=== PATIENT | male | born 1970 | race Caucasian/White ===

== ENCOUNTER 2017-10-27 07:44 | Outpatient (CLI) | payer BC ==
--- NOTE | 2017-10-27 09:45 | ULT ---
ABDOMINAL ULTRASOUND: DATE: 10/27/17. HISTORY: Elevated liver function tests. FINDINGS: The liver demonstrates diffuse increased echogenicity suggesting diffuse fatty infiltration. This d oes limit evaluation of the hepatic parenchyma, but no focal hepatic lesion is appreciated. The live r is also enlarged in craniocaudal dimensions measuring 19 cm. There are a few echogenic areas within the spleen which are nonspecific and may be related to vascula r structures with a question of a few calcified granulomata. The spleen is normal in size. The visualized portions of the pancreas, visualized portions of the IVC, abdominal aorta, gallbladder , and bilateral kidneys demonstrate a normal sonographic appearance. The right kidney measures 11.5 cm in length with the left kidney measuring 11.7 cm in length. The common duct measures 0.3 cm diameter, which is within normal limits. IMPRESSION: Hepatomegaly with diffuse fatty infiltration of the liver. POS: [facility]
== END 2017-10-27 07:45 | disposition home or self-care (01) ==
LOC: SCSULT 07:44
PROVIDERS: ATTEND Internal Medicine
DX: K62.5 Hemorrhage of anus and rectum (principal); R94.5 Abnormal results of liver function studies; R10.11 Right upper quadrant pain; R12 Heartburn; Z80.0 Family history of malignant neoplasm of digestive organs; K76.0 Fatty (change of) liver, not elsewhere classified
CPT/HCPCS: 76700

== ENCOUNTER 2017-11-11 08:28 | Outpatient (CLI) | payer BC ==
[2017-11-11] MEDS ORDERED: Iopamidol 370 76% 100 ML VIAL ONE (09:00)
--- NOTE | 2017-11-11 13:06 | CT ---
CT NECK WITH CONTRAST: DATE: 11-11-17 History: 47-year-old male with neck mass. E04.1, thyroid cyst Comparison: None. FINDINGS: There is a well circumscribed, approximately 2.5 x 2.7 x 1.7 cm moderately low attenuation mass locat ed between the left anterior surface of the thyroid cartilage and the left strap muscle. This mass di splaces the left strap muscle anteriorly. It has a density of 23 HU. It is superiorly bordered by the hyoid bone. It is anterior and superior to the upper pole of the left lobe of thyroid gland. The thy roid gland is normal in size. The bony cervical spine is essentially normal. The retropharyngeal, per ivertebral, posterior cervical, parapharyngeal, parotid, carotid, submandibular, lunch counter manager, and subl ingual spaces, are normal except for a large number of minimally enlarged, scattered shotty cervical lymph nodes at all levels, nonspecific. The larynx is normal. Adenoids and palatine tonsils are symme trically mildly thickened. IMPRESSION: A mass deep to the left strap muscles, anterior to the left side of the hyoid bone: evidence for thyr oglossal duct cyst, with mildly increased attenuation of its internal fluid contents. POS: [facility]
== END 2017-11-11 08:29 | disposition home or self-care (01) ==
LOC: SCSCT 08:28
PROVIDERS: ATTEND Specialist
DX: E04.1 Nontoxic single thyroid nodule (principal); R22.1 Localized swelling, mass and lump, neck
CPT/HCPCS: 70491

== ENCOUNTER 2018-01-13 13:20 | Day surgery (SDC) | payer BC ==
[2018-01-11 11:41] VITALS: BMI 35.7
[~2018-01-13 13:20] MED LIST: Dexamethasone 20 MG/5 ML VIAL ONE; Glycopyrrolate 0.2 MG/ML 5 ML SYRINGE ONE; Lidocaine 1% PF 5 ML VIAL ONE; Ondansetron HCl/PF 4 MG/2 ML Vial ONE; PROPOFOL 200 MG/20 ML VIAL ONE; ePHEDrine/0.9% NaCl/PF SYRINGE 50 mg/10 ml ONE
[2018-01-13] MEDS ORDERED: Fentanyl 100 MCG/2 ML VIAL ONE ×4 (15:09→18:13)
[2018-01-13] MEDS ORDERED: Bacitracin Zinc Ointment 30 gm TUBE ONE (15:23)
[2018-01-13] MEDS ORDERED: Lidocaine 1% w/Epinephrine 1:100K 30 ML VIAL ONE (15:23)
[2018-01-13] MEDS ORDERED: Fentanyl 250 MCG/5 ML VIAL ONE ×2 (15:28→15:30)
[2018-01-13] MEDS ORDERED: Midazolam HCl 2 mg/2 ml Vial ONE ×2 (15:28→15:30)
--- NOTE | 2018-01-14 00:41 | OP ---
PREOPERATIVE DIAGNOSIS: Large thyroglossal duct cyst. POSTOPERATIVE DIAGNOSIS: Large thyroglossal duct cyst. PROCEDURE PERFORMED: Excision of large thyroglossal duct cyst and also Reyes procedure. PROCEDURE IN DETAIL: After consent was obtained, the patient was identified, brought to the operatin g room and placed on the operating table in supine position. General endotracheal anesthesia was obt ained. The patient was positioned for surgery. The neck was obese and the cyst was large and predom inantly left-sided. An incision was made through a natural skin crease after the patient was prepped and draped and carried down through the skin, subcutaneous tissues, and platysma. We then continued our dissection down and elevated inferiorly and superiorly based flaps. We then were able to dissec t down through the anterior strap muscle and we immediately encountered the cyst. Cyst was then diss ected from the surrounding soft tissue. We then continued dissection superiorly to the hyoid bone. The cyst tract was delineated and the medial portion of the hyoid bone was removed with bone snippers . We then dissected the tongue and insertion of the tongue muscle and the superior aspect of the hyo id bone until the cyst was encountered again. We now had the cyst tract completely immobilized as it entered the pharynx. Silk tie was used with a #2 silk suture and tied off with the free edge being bipolared to kill any exposed mucosa. The wound was then closed. Fibrillar Surgicel was used in the deep aspect of the wound and the strap muscles reapproximated as was the platysma and the skin. The patient was awakened after sterile dressing was applied and taken to recovery room where he remained in stable condition prior to discharge home.
== END 2018-01-13 19:28 | disposition home or self-care (01) ==
LOC: SDC 13:20
PROVIDERS: ATTEND Specialist
PROC: 0WB60ZX Excision of Neck, Open Approach, Diagnostic (ICD-10-PCS; principal; 2018-01-13)
DX: Q89.2 Congenital malformations of other endocrine glands (principal); E78.5 Hyperlipidemia, unspecified; E03.9 Hypothyroidism, unspecified; Z79.899 Other long term (current) drug therapy
CPT/HCPCS: 88305; 93005; 93010; 96374; J1100; J2001; J2250; J2405; J2704; J3010

== ENCOUNTER 2018-09-05 15:37 | Emergency (ER) | payer BC ==
[2018-09-05 16:46] LABS: #Basophils 0.1 thou/uL (0.0-0.2); #Eosinphils 0.1 thou/uL (0.0-0.7); #Lymphocytes 2.1 thou/uL (1.20-3.40); #Monocytes 1.3 thou/uL (0.11-0.59); #Neutrophils 9.9 thou/uL (1.40-6.50); %Basophils 0.5 % (0.0-1.0); %Eosinophils 0.6 % (0.0-10.0); %Lymphocytes 15.4 % (21.0-51.0); %Monocytes 9.8 % (0.0-10.0); %Neutrophils 73.8 % (42.0-75.0); Hemoglobin 15.3 g/dL (14.0-18.0); Mean Corpuscular HGB CONC 34.3 g/dL (32.0-36.0); Mean Corpuscular Volume 93.3 fL (78.0-98.0); Mean Platelet Volume 8.3 fL (7.4-10.4); Platelet Count 201 thou/uL (130-400); RBC Distribution Width 11.9 % (11.5-14.5); Red Blood Cell (RBC) Count 4.78 mill/uL (4.70-6.10); White Blood Cell (WBC) Count 13.4 thou/uL (4.8-10.8)
[2018-09-05] MEDS ORDERED: Ketorolac Tromethamine 30 MG/ML VIAL ONE (16:51)
[2018-09-05] MEDS ORDERED: Acetaminophen 500 MG TAB ONE (17:21)
[2018-09-05 17:37] LABS: Bilirubin Negative (Negative); Blood, Urine Negative (Negative); Clarity CLEAR (Clear); Glucose, Urine (Dipstick) Negative (Negative); Leukocyte Small (Negative); Nitrite Negative (Negative); Protein, Urine (Dipstick) Negative (Neg-Trace); Specific Gravity, Urine 1.019 (1.002-1.036); pH, Urine 6.5 (5.0-9.0)
[2018-09-05 17:39] LABS: Bacteria/HPF None Seen HPF (None Seen); Hyaline Casts/LPF 0-3 HYALINE CAST LPF (0-3 Hyaline); Pathc Cast-AUWi Flag 0.29 (0-2.49); Squamous Epithelial 0-3 HPF (0-3)
[2018-09-05 17:55] LABS: RBC/HPF 0-3 HPF (0-3)
--- NOTE | 2018-09-05 17:55 | ULT ---
TESTICULAR ULTRASOUND: History: Right sided testicular pain and swelling. FINDINGS: Real-time imaging of the right and left testes was performed. The right testicle measures 4.1 and the left 5 cm in size. There are small bilateral hydroceles present. On the right side there is a 3 mm epididymal cyst. The head of the epididymis does not appear enlarge d, however, along the inferior epididymis it is very heterogeneous in appearance in the mid to tail r egion of the epididymis and there is increased flow. DOPPLER EVALUATION WITH SPECTRAL ANALYSIS: Normal flow is shown to be testes. Increased flow to an area along the inferior pole of the right kalyani ticle which appears to be related to an enlarged epididymal tail and body region. Also some incidenta l note of somewhat prominent vessels in the right inguinal canal region. IMPRESSION: 1. Findings suggestive of a right sided epididymitis. 2. No evidence of testicular torsion. 3. Small bilateral hydroceles. POS: [facility]
[2018-09-05 19:11] LABS: ALT (SGPT) 49 U/L (8-55); AST (SGOT) 28 U/L (5-34); Albumin 4.5 g/dL (3.5-5.0); Alkaline Phosphatase 87 U/L (40-150); Anion Gap 12 mmol/L (10-20); BUN (Urea Nitrogen) 11 mg/dL (8.9-20.6); Calc. Creatinine Clearance 0 mL/min (70-130); Calcium 9.7 mg/dL (7.8-10.44); Carbon Dioxide 27 mmol/L (22-29); Chloride 99 mmol/L (98-107); Estimated GFR-MDRD Greater than 90; Glucose 106 mg/dL (70-105); Potassium 3.8 mmol/L (3.5-5.1); Protein, Total 7.5 g/dL (6.0-8.3); Sodium 134 mmol/L (136-145)
== END 2018-09-05 18:46 | disposition home or self-care (01) ==
LOC: ERS 15:37
DX: N45.1 Epididymitis (principal); E03.9 Hypothyroidism, unspecified; Z79.899 Other long term (current) drug therapy
CPT/HCPCS: 36415; 76870; 80053; 81003; 81015; 83605; 85025; 96361; 96374; J1885

== ENCOUNTER 2019-02-02 10:30 | Outpatient (CLI) | payer BC ==
--- NOTE | 2019-02-02 11:15 | CT ---
CT Stone Protocol: 02/02/2019 12:00 AM HISTORY: Right flank pain for 2 weeks COMPARISON: None. TECHNIQUE: Multiple contiguous axial images were obtained and a CT of the abdomen and pelvis without IV contrast . Coronal reformats were performed. FINDINGS: This examination is limited for the evaluation of solid organs and vascular structures due to the lac k of intravenous contrast. Lower Chest: within normal limits. Abdomen: Liver: Diffuse fatty infiltration of the liver is seen. Bile Ducts: Normal caliber. Gallbladder: No calcified gallstones. Normal caliber wall. Pancreas: within normal limits. Spleen: within normal limits. Adrenals: within normal limits. Kidneys: Mild right hydronephrosis. There is a nonobstructing 1 to 2 mm calcification in the left kid masha. Pelvis: Reproductive Organs: No pelvic masses. Ureters: There is a 5 to 6 mm calcification in the midportion of the right ureter with mild right hyd ronephrosis. Bladder: within normal limits. Bowel: Normal caliber. Normal appendix. Mesenteric Lymph Nodes: No enlarged mesenteric lymph nodes. Peritoneum: No ascites or free air, no fluid collection. Vessels: Normal caliber aorta Retroperitoneum: within normal limits. Abdominal Wall: within normal limits. Bones: Degenerative changes in the spine. IMPRESSION: 1. Right midureteral calcification with mild right hydronephrosis 2. Nonobstructing left renal calcification 3. Fatty liver
== END 2019-02-02 10:31 | disposition home or self-care (01) ==
LOC: SCSCT 10:30
PROVIDERS: ATTEND Family Medicine
DX: M54.5 Low back pain (principal); K76.0 Fatty (change of) liver, not elsewhere classified; N13.30 Unspecified hydronephrosis; N28.89 Other specified disorders of kidney and ureter
CPT/HCPCS: 74176